=== PATIENT | female | born 1985 | race Caucasian/White ===

== ENCOUNTER 2017-09-08 18:16 | Emergency (ER) | payer OTHER ==
[~2017-09-08] VITALS: Ht 170.2 cm; Wt 90.7 kg
[~2017-09-08 18:16] MED LIST: AMOXICILLIN 50500 M1 PO; CLARITIN-D 12 H1 TA1 PO; CORTISPORIN OTI10 M2 OT; FLEXERIL PO; IBUPROFEN 800800 MG PO; LIORESAL 10 MG10 MG PO; NOHOMEMEDICATIONS; TRAMADOL 50 MG50 MG PO; VICODIN 5-5001 EACH PO
[2017-09-08] MEDS ORDERED: POLYMYXIN B/TMP10 ML OPHTHALMIC (18:35)
[2017-09-08 18:41] VITALS: BP 154/80
== END 2017-09-08 18:42 | disposition home or self-care (01) ==
LOC: M.ERS 18:16
DX: H00.021 Hordeolum internum right upper eyelid (principal); H00.022 Hordeolum internum right lower eyelid; F31.9 Bipolar disorder, unspecified; Z98.890 Other specified postprocedural states; F17.210 Nicotine dependence, cigarettes, uncomplicated

== ENCOUNTER 2017-09-20 14:20 | Emergency (ER) | payer OTHER ==
[~2017-09-20] VITALS: Ht 167.6 cm; Wt 90.7 kg
[~2017-09-20 14:20] MED LIST changes: +POLYMYXIN B/TMP10 ML OPHTHALMIC
[2017-09-20 14:30] VITALS: BP 154/87
[2017-09-20] MEDS ORDERED: IBUPROFEN 800800 M1 PO (14:51)
[2017-09-20] MEDS ORDERED: MEDROLDOSEPACK PO (14:51)
== END 2017-09-20 15:00 | disposition home or self-care (01) ==
LOC: M.ERS 14:20
DX: M77.9 Enthesopathy, unspecified (principal); F31.9 Bipolar disorder, unspecified; Z98.890 Other specified postprocedural states; F17.210 Nicotine dependence, cigarettes, uncomplicated

== ENCOUNTER 2017-11-06 13:23 | Emergency (ER) | payer OTHER ==
[~2017-11-06] VITALS: Ht 170.2 cm; Wt 90.7 kg
[~2017-11-06 13:23] MED LIST changes: +IBUPROFEN 800800 M1 PO; +MEDROLDOSEPACK PO
[2017-11-06] MEDS ORDERED: DEPAKOTE 250MG250 M1 PO (13:35)
[2017-11-06] MEDS ORDERED: PROZAC10 MG PO (13:36)
[2017-11-06] MEDS ORDERED: IBUPROFEN 600600 M1 PO (13:36)
[2017-11-06 14:10] LABS: ABSOLUTE BASOPHILS 0.1 thou/uL (0.0-0.2); ABSOLUTE EOSINOPHILS 0.1 thou/uL (0.0-0.7); ABSOLUTE LYMPHOCYTES 2.7 thou/uL (0.8-5.3); ABSOLUTE MONOCYTES 0.8 thou/uL (0.0-1.2); ABSOLUTE NEUTROPHILS 9.3 thou/uL (1.6-8.1); BASOPHILS 0.4 %; HEMATOCRIT 41.6 % (37.0-47.0); HEMOGLOBIN 14.5 gm/dL (12.0-15.0); LYMPHOCYTES 20.5 %; MCH 33.1 pg (26.0-34.0); MCHC 34.8 g/dL (28.0-37.0); MCV 95.1 fL (80.0-100.0); MONOCYTES 6.1 %; NUCLEATED RBCS 0 /100WBC; PLATELET COUNT* 215 thou/uL (150-400); RBC 4.37 mil/uL (4.20-5.00); RDW-CV 12.6 % (10.5-14.5); WBC 12.9 thou/uL (4.0-11.0)
[2017-11-06 14:18] LABS: ANION GAP 6 mmol/L (7-16); BUN 11 mg/dL (7-18); CALCIUM 8.5 mg/dL (8.5-10.1); CHLORIDE 100 mmol/L (98-107); CO2 26 mmol/L (21-32); CREATININE 0.9 mg/dL (0.6-1.3); GLUCOSE 170 mg/dL (70-99); POTASSIUM 3.9 mmol/L (3.5-5.1); SODIUM 132 mmol/L (136-145)
[2017-11-06 14:26] LABS: ALBUMIN 3.2 g/dL (3.4-5.0); ALKALINE PHOSPHATASE 74 U/L (46-116); LIPASE 113 U/L (73-393); SGOT 16 U/L (15-37); SGPT 28 U/L (30-65); TOTAL BILIRUBIN 0.7 mg/dL (<0.1-1.0); TOTAL PROTEIN 7.6 g/dL (6.4-8.2); TROPONIN-I LEVEL <0.06 ng/mL (<0.06)
[2017-11-06] MEDS ORDERED: MEDROLDOSEPACK PO (15:00)
[2017-11-06 15:07] VITALS: BP 102/79
--- NOTE | 2017-11-06 17:32 | EKG ---
[place] [address] ELECTROCARDIOGRAM REPORT Name: KALEN MESSINA Room: [facility]#: [id number] Admission: 11/06/17 Attend Phys: Discharge: 11/06/17 Date of : 83 Report #: [id number] THIS REPORT FOR: //name// [facility] ED Test Date: 2017-11-06 Test Time: 13:36:10 Pat Name: KALEN MESSINA Department: Room: Gender: F Portfolio Director: : 1985 Requested By: Fausto Keys Order Number: [id number] MD: Denis Felix Measurements Intervals [place] Rate: 84 P: 57 MD: 121 QRS: 60 QRSD: 87 T: 45 QT: 349 QTc: 413 Interpretive Statements Sinus rhythm Probable left atrial enlargement No previous ECG available for comparison Electronically Signed On 11-06-2017 17:31:53 CDT by Denis Felix [email or web address] <ELECTRONICALLY SIGNED> By: Denis Felix MD, [facility] 11/06/17 1731 [id number] [id number] Denis Felix MD, FACC /EPI
== END 2017-11-06 15:08 | disposition home or self-care (01) ==
LOC: M.ERS 13:23
PROVIDERS: Nurse Practitioner Family
DX: R07.89 Other chest pain (principal); R09.1 Pleurisy; F17.200 Nicotine dependence, unspecified, uncomplicated; F31.9 Bipolar disorder, unspecified; Z98.890 Other specified postprocedural states

== ENCOUNTER 2018-06-02 20:19 | Emergency (ER) | payer OTHER ==
[~2018-06-02] VITALS: Ht 167.6 cm; Wt 108.9 kg
[~2018-06-02 20:19] MED LIST changes: +DEPAKOTE 250MG250 M1 PO; +IBUPROFEN 600600 M1 PO; +PROZAC10 MG PO
[2018-06-02 21:16] LABS: ABSOLUTE EOSINOPHILS 0.1 thou/uL (0.0-0.7); ABSOLUTE MONOCYTES 0.7 thou/uL (0.0-1.2); ABSOLUTE NEUTROPHILS 7.6 thou/uL (1.6-8.1); BASOPHILS 0.2 %; EOSINOPHILS 1.2 %; HEMATOCRIT 44.4 % (37.0-47.0); HEMOGLOBIN 15.4 gm/dL (12.0-15.0); LYMPHOCYTES 26.5 %; MCH 32.1 pg (26.0-34.0); MCHC 34.6 g/dL (28.0-37.0); MCV 92.7 fL (80.0-100.0); MPV 9.7 fl. (7.2-11.1); NUCLEATED RBCS 0 /100WBC; PLATELET COUNT* 229 thou/uL (150-400); POLYS 66.1 %; RBC 4.79 mil/uL (4.20-5.00); RDW-CV 12.5 % (10.5-14.5); URINE BILIRUBIN NEGATIVE (Negative); URINE BLOOD NEGATIVE (Negative); URINE CLARITY CLEAR; URINE COLOR STRAW; URINE GLUCOSE-RANDOM 3+ (Negative); URINE KETONES TRACE (Negative); URINE LEUKOCYTES-REFLEX NEGATIVE (Negative); URINE NITRITE-REFLEX NEGATIVE (Negative); URINE PROTEIN TRACE (Negative); URINE UROBILINOGEN 0.2 E.U./dl (0.2-1.0); WBC 11.5 thou/uL (4.0-11.0)
[2018-06-02 21:27] LABS: APTT 25.3 Seconds (25.0-31.3); PROTIME 9.9 Seconds (9.20-11.50)
[2018-06-02 21:28] LABS: ALBUMIN 3.5 g/dL (3.4-5.0); CALCIUM 9.5 mg/dL (8.5-10.1); TOTAL BILIRUBIN 0.4 mg/dL (<0.1-1.0); TOTAL PROTEIN 8.4 g/dL (6.4-8.2)
[2018-06-02] MEDS ORDERED: PERCOCET PO (21:32)
[2018-06-02] MEDS ORDERED: IBUPROFEN 800800 M1 PO (21:32)
[2018-06-02 22:47] VITALS: BP 143/59
== END 2018-06-02 22:49 | disposition home or self-care (01) ==
LOC: M.ERS 20:19
PROVIDERS: Nurse Practitioner Family
DX: S52.572A Other intraarticular fracture of lower end of left radius, initial encounter for closed fracture (principal); S52.692A Other fracture of lower end of left ulna, initial encounter for closed fracture; S09.8XXA Other specified injuries of head, initial encounter; M25.512 Pain in left shoulder; R03.0 Elevated blood-pressure reading, without diagnosis of hypertension; R73.9 Hyperglycemia, unspecified; F31.9 Bipolar disorder, unspecified; Z98.890 Other specified postprocedural states; V87.8XXA Person injured in other specified noncollision transport accidents involving motor vehicle (traffic), initial encounter; Y93.89 Activity, other specified; Y92.89 Other specified places as the place of occurrence of the external cause; Y99.8 Other external cause status

== ENCOUNTER 2019-04-11 00:31 | Emergency (ER) | payer OTHER ==
[~2019-04-11] VITALS: Ht 170.2 cm; Wt 101.2 kg
[~2019-04-11 00:31] MED LIST changes: +PERCOCET PO
[2019-04-11 00:50] LABS: URINE BILIRUBIN NEGATIVE (Negative); URINE BLOOD NEGATIVE (Negative); URINE CLARITY CLEAR; URINE COLOR YELLOW; URINE GLUCOSE-RANDOM 3+ (Negative); URINE KETONES NEGATIVE (Negative); URINE LEUKOCYTES-REFLEX NEGATIVE (Negative); URINE NITRITE-REFLEX NEGATIVE (Negative); URINE PROTEIN NEGATIVE (Negative); URINE SPECIFIC GRAVITY <= 1.005 (1.005-1.030); URINE UROBILINOGEN 0.2 E.U./dl (0.2-1.0)
[2019-04-11 00:59] LABS: AMP/METHAMP Negative (Negative); BARBITURATES Negative (Negative); BENZODIAZEPINES Negative (Negative); COCAINE Negative (Negative); METHADONE Negative (Negative); OPIATES Negative (Negative); PCP Negative (Negative); THC POSITIVE (Negative)
[2019-04-11 01:28] LABS: INFLUENZA A ANTIGEN Positive (Negative); INFLUENZA B ANTIGEN Negative (Negative)
[2019-04-11 01:45] VITALS: BP 142/58
[2019-04-11] MEDS ORDERED: PROMETH-CODEIN 65 ML PO (01:53)
[2019-04-11] MEDS ORDERED: TAMIFLU75 MG PO (01:53)
== END 2019-04-11 02:14 | disposition home or self-care (01) ==
LOC: M.ERS 00:31
PROVIDERS: Emergency Medicine
DX: J10.1 Influenza due to other identified influenza virus with other respiratory manifestations (principal); F31.9 Bipolar disorder, unspecified; F17.210 Nicotine dependence, cigarettes, uncomplicated; Z98.890 Other specified postprocedural states

== ENCOUNTER 2019-06-14 21:16 | Emergency (ER) | payer OTHER ==
[~2019-06-14] VITALS: Ht 170.2 cm; Wt 90.7 kg
[~2019-06-14 21:16] MED LIST changes: +PROMETH-CODEIN 65 ML PO; +TAMIFLU75 MG PO
[2019-06-14 22:03] LABS: URINE BILIRUBIN NEGATIVE (Negative); URINE BLOOD NEGATIVE (Negative); URINE CLARITY CLEAR; URINE COLOR YELLOW; URINE GLUCOSE-RANDOM 3+ (Negative); URINE KETONES NEGATIVE (Negative); URINE LEUKOCYTES-REFLEX NEGATIVE (Negative); URINE NITRITE-REFLEX NEGATIVE (Negative); URINE PROTEIN NEGATIVE (Negative); URINE SPECIFIC GRAVITY >= 1.030 (1.005-1.030); URINE UROBILINOGEN 0.2 E.U./dl (0.2-1.0)
[2019-06-14 22:06] LABS: ABSOLUTE BASOPHILS 0.1 thou/uL (0.0-0.2); ABSOLUTE EOSINOPHILS 0.2 thou/uL (0.0-0.7); ABSOLUTE LYMPHOCYTES 3.1 thou/uL (0.8-5.3); ABSOLUTE MONOCYTES 0.5 thou/uL (0.0-1.2); ABSOLUTE NEUTROPHILS 9.8 thou/uL (1.6-8.1); BASOPHILS 0.6 %; EOSINOPHILS 1.1 %; HEMOGLOBIN 15.9 gm/dL (12.0-15.0); MCH 33.4 pg (26.0-34.0); MCHC 35.4 g/dL (28.0-37.0); MCV 94.5 fL (80.0-100.0); MONOCYTES 3.5 %; MPV 9.3 fl. (7.2-11.1); NUCLEATED RBCS 0 /100WBC; PLATELET COUNT* 199 thou/uL (150-400); POLYS 71.8 %; RBC 4.77 mil/uL (4.20-5.00); RDW-CV 12.7 % (10.5-14.5); WBC 13.6 thou/uL (4.0-11.0)
[2019-06-14 22:14] LABS: AMP/METHAMP Negative (Negative); BARBITURATES Negative (Negative); BENZODIAZEPINES Negative (Negative); COCAINE Negative (Negative); METHADONE Negative (Negative); OPIATES Negative (Negative); PCP Negative (Negative); THC POSITIVE (Negative)
[2019-06-14 22:23] LABS: CALCIUM 8.6 mg/dL (8.5-10.1); CREATININE 0.9 mg/dL (0.6-1.3); POTASSIUM 3.6 mmol/L (3.5-5.1)
[2019-06-14 22:28] LABS: ALBUMIN 3.2 g/dL (3.4-5.0); TOTAL BILIRUBIN 0.5 mg/dL (<0.1-1.0); TOTAL PROTEIN 7.7 g/dL (6.4-8.2)
[2019-06-14 22:59] VITALS: BP 129/86
--- NOTE | 2019-06-15 14:46 | EKG ---
[place] [address] ELECTROCARDIOGRAM REPORT Name: KALEN MESSINA Room: [facility] ([place], [place])#: [id number] Admission: 06/14/19 Attend Phys: Discharge: 06/14/19 Date of : 83 Date of Service: 06/14/192199 Report #: [id number] THIS REPORT FOR: //name// [facility] ED Test Date: 2019-06-14 Test Time: 22:00:26 Pat Name: KALEN MESSINA Department: Room: Gender: F Television Engineer: BRAN : 1985 Requested By: Cassidy King Order Number: [id number] MD: Tristan Arana Measurements Intervals [place] Rate: 82 P: 43 NE: 130 QRS: 59 QRSD: 91 T: 45 QT: 356 QTc: 416 Interpretive Statements Sinus rhythm Compared to ECG 11/06/2017 13:36:10 No significant changes Electronically Signed On 06-15-2019 14:44:24 CDT by Tristan Arana [email or web address] <ELECTRONICALLY SIGNED> By: Tristan Arana MD, [facility] 06/15/19 [phone] 99 Tristan Arana MD, [facility] /EPI
== END 2019-06-14 22:59 | disposition home or self-care (01) ==
LOC: M.ERS 21:16
PROVIDERS: Personal Emergency Response Attendant
DX: E11.65 Type 2 diabetes mellitus with hyperglycemia (principal); F31.9 Bipolar disorder, unspecified; F17.210 Nicotine dependence, cigarettes, uncomplicated; Z98.890 Other specified postprocedural states

== ENCOUNTER 2019-07-11 01:22 | Emergency (ER) | payer OTHER ==
[~2019-07-11] VITALS: Ht 170.2 cm; Wt 90.7 kg
[2019-07-11 01:59] LABS: ABSOLUTE BASOPHILS 0.1 thou/uL (0.0-0.2); ABSOLUTE EOSINOPHILS 0.2 thou/uL (0.0-0.7); ABSOLUTE MONOCYTES 0.6 thou/uL (0.0-1.2); ABSOLUTE NEUTROPHILS 8.2 thou/uL (1.6-8.1); BASOPHILS 0.6 %; EOSINOPHILS 1.4 %; HEMATOCRIT 46.2 % (37.0-47.0); HEMOGLOBIN 16.3 gm/dL (12.0-15.0); LYMPHOCYTES 30.8 %; MCH 33.6 pg (26.0-34.0); MCHC 35.3 g/dL (28.0-37.0); MCV 94.9 fL (80.0-100.0); MONOCYTES 4.4 %; MPV 9.6 fl. (7.2-11.1); NUCLEATED RBCS 0 /100WBC; PLATELET COUNT* 217 thou/uL (150-400); POLYS 62.8 %; RBC 4.86 mil/uL (4.20-5.00); RDW-CV 12.7 % (10.5-14.5)
[2019-07-11 02:10] LABS: CALCIUM 8.7 mg/dL (8.5-10.1); CREATININE 0.9 mg/dL (0.6-1.3); POTASSIUM 3.6 mmol/L (3.5-5.1)
[2019-07-11 02:14] LABS: ALBUMIN 3.3 g/dL (3.4-5.0); TOTAL BILIRUBIN 0.4 mg/dL (<0.1-1.0); TOTAL PROTEIN 8.1 g/dL (6.4-8.2)
[2019-07-11] MEDS ORDERED: IBUPROFEN 800800 M1 PO (02:27)
[2019-07-11] MEDS ORDERED: FLEXERIL PO (02:27)
[2019-07-11] MEDS ORDERED: NORCO 5-325 TA1 EAC1 PO (02:27)
[2019-07-11 02:35] VITALS: BP 145/80
--- NOTE | 2019-07-11 16:15 | EKG ---
[place] [address] ELECTROCARDIOGRAM REPORT Name: KALEN MESSINA Room: [facility] ([place], [place])#: [id number] Admission: 07/11/19 Attend Phys: Discharge: 07/11/19 Date of : 83 Date of Service: 07/11/19 0129 Report #: [id number] THIS REPORT FOR: //name// [facility] ED Test Date: 2019-07-11 Test Time: 01:29:45 Pat Name: KALEN MESSINA Department: Room: Gender: F Oil Operator: : 1985 Requested By: Alec Monsalve Order Number: [id number] MD: Juan Antonio Barrios Measurements Intervals [place] Rate: 86 P: 44 FL: 129 QRS: 63 QRSD: 91 T: 52 QT: 344 QTc: 412 Interpretive Statements Sinus rhythm Compared to ECG 06/14/2019 22:00:26 No significant changes Electronically Signed On 07-11-2019 16:13:46 CDT by Juan Antonio Barrios [email or web address] <ELECTRONICALLY SIGNED> By: Juan Antonio Barrios MD, [facility] 07/11/19 1613 0129 0129 Juan Antonio Barrios MD, [facility] /EPI
== END 2019-07-11 02:35 | disposition home or self-care (01) ==
LOC: M.ERS 01:22
PROVIDERS: Emergency Medicine Emergency Medical Services
DX: M94.0 Chondrocostal junction syndrome [Tietze] (principal); R07.89 Other chest pain; F17.210 Nicotine dependence, cigarettes, uncomplicated; Z98.890 Other specified postprocedural states

== ENCOUNTER 2019-09-06 02:27 | Emergency (ER) | payer OTHER ==
[~2019-09-06] VITALS: Ht 170.2 cm; Wt 100.2 kg
[~2019-09-06 02:27] MED LIST changes: +NORCO 5-325 TA1 EAC1 PO
[2019-09-06 02:32] VITALS: BP 148/86
[2019-09-06] MEDS ORDERED: NORCO 5-325 TA1 EAC2 PO (02:48)
[2019-09-06] MEDS ORDERED: FLEXERIL PO (02:48)
== END 2019-09-06 02:54 | disposition home or self-care (01) ==
LOC: M.ERS 02:27
DX: M54.6 Pain in thoracic spine (principal); F17.210 Nicotine dependence, cigarettes, uncomplicated; Z98.890 Other specified postprocedural states; Z98.51 Tubal ligation status

== ENCOUNTER 2019-10-10 23:08 | Emergency (ER) | payer OTHER ==
[~2019-10-10] VITALS: Ht 170.2 cm; Wt 99.8 kg
[~2019-10-10 23:08] MED LIST changes: +NORCO 5-325 TA1 EAC2 PO
[2019-10-11] MEDS ORDERED: PROMETHAZINE V120 ML PO (00:14)
[2019-10-11] MEDS ORDERED: Magic Mouthwash SWISH&SPIT (00:14)
[2019-10-11] MEDS ORDERED: NAPROSYN500 MG PO (00:15)
[2019-10-11 00:26] VITALS: BP 136/70
== END 2019-10-11 00:26 | disposition home or self-care (01) ==
LOC: M.ERS 23:08
DX: J04.0 Acute laryngitis (principal); M94.0 Chondrocostal junction syndrome [Tietze]; F17.210 Nicotine dependence, cigarettes, uncomplicated; Z98.890 Other specified postprocedural states; Z98.51 Tubal ligation status

== ENCOUNTER 2019-11-19 19:17 | Emergency (ER) | payer OTHER ==
[~2019-11-19] VITALS: Ht 170.2 cm; Wt 99.8 kg
[~2019-11-19 19:17] MED LIST changes: +Magic Mouthwash SWISH&SPIT; +NAPROSYN500 MG PO; +PROMETHAZINE V120 ML PO
[2019-11-19] MEDS ORDERED: PROAIR HFA8.5 GM INH (20:47)
[2019-11-19] MEDS ORDERED: MEDROLDOSEPACK PO (20:47)
[2019-11-19 20:50] VITALS: BP 121/62
== END 2019-11-19 20:50 | disposition home or self-care (01) ==
LOC: M.ERS 19:17
DX: J20.9 Acute bronchitis, unspecified (principal); Z20.828 Contact with and (suspected) exposure to other viral communicable diseases; F31.9 Bipolar disorder, unspecified; F17.210 Nicotine dependence, cigarettes, uncomplicated; Z98.890 Other specified postprocedural states; Z98.51 Tubal ligation status

== ENCOUNTER 2020-01-22 18:39 | Emergency (ER) | payer OTHER ==
[~2020-01-22] VITALS: Ht 170.2 cm; Wt 97.5 kg
[~2020-01-22 18:39] MED LIST changes: +PROAIR HFA8.5 GM INH
[2020-01-22 19:23] LABS: URINE BILIRUBIN NEGATIVE (Negative); URINE BLOOD NEGATIVE (Negative); URINE CLARITY CLEAR; URINE COLOR YELLOW; URINE GLUCOSE-RANDOM NEGATIVE (Negative); URINE KETONES NEGATIVE (Negative); URINE LEUKOCYTES-REFLEX NEGATIVE (Negative); URINE NITRITE-REFLEX NEGATIVE (Negative); URINE PROTEIN TRACE (Negative); URINE UROBILINOGEN 0.2 E.U./dl (0.2-1.0)
[2020-01-22 19:28] LABS: ABSOLUTE BASOPHILS 0.1 thou/uL (0.0-0.2); ABSOLUTE EOSINOPHILS 0.1 thou/uL (0.0-0.7); ABSOLUTE LYMPHOCYTES 3.3 thou/uL (0.8-5.3); ABSOLUTE MONOCYTES 0.7 thou/uL (0.0-1.2); ABSOLUTE NEUTROPHILS 8.8 thou/uL (1.6-8.1); BASOPHILS 0.4 %; HEMOGLOBIN 16.3 gm/dL (12.0-15.0); LYMPHOCYTES 25.7 %; MCH 32.7 pg (26.0-34.0); MCHC 34.7 g/dL (28.0-37.0); MONOCYTES 5.3 %; MPV 8.7 fl. (7.2-11.1); NUCLEATED RBCS 0 /100WBC; PLATELET COUNT* 229 thou/uL (150-400); POLYS 67.6 %; RDW-CV 12.6 % (10.5-14.5)
[2020-01-22 19:32] LABS: AMP/METHAMP Negative (Negative); BARBITURATES Negative (Negative); BENZODIAZEPINES POSITIVE (Negative); COCAINE Negative (Negative); METHADONE Negative (Negative); OPIATES Negative (Negative); PCP Negative (Negative); THC POSITIVE (Negative)
[2020-01-22 19:35] LABS: CALCIUM 8.8 mg/dL (8.5-10.1); CREATININE 0.8 mg/dL (0.6-1.3); POTASSIUM 3.5 mmol/L (3.5-5.1)
[2020-01-22 19:40] LABS: ALBUMIN 3.4 g/dL (3.4-5.0); TOTAL BILIRUBIN 0.8 mg/dL (<0.1-1.0); TOTAL PROTEIN 7.9 g/dL (6.4-8.2)
[2020-01-22 20:15] LABS: ACETAMINOPHEN < 2 ug/mL (10-30); ALCOHOL < 10 mg/dL (<10)
[2020-01-23 17:10] VITALS: BP 155/99
== END 2020-01-23 17:10 ==
LOC: M.ERS 18:39
PROVIDERS: Emergency Medicine
DX: R45.851 Suicidal ideations (principal); Z20.828 Contact with and (suspected) exposure to other viral communicable diseases; F17.210 Nicotine dependence, cigarettes, uncomplicated; Z98.890 Other specified postprocedural states; Z98.51 Tubal ligation status; Z79.899 Other long term (current) drug therapy

== ENCOUNTER 2020-04-04 11:21 | Emergency (ER) | payer OTHER ==
[~2020-04-04] VITALS: Ht 170.2 cm; Wt 90.7 kg
[2020-04-04] MEDS ORDERED: PROZAC10 M1 PO (11:43)
[2020-04-04] MEDS ORDERED: DESYREL150 MG PO (11:43)
[2020-04-04] MEDS ORDERED: ABILIFY10 MG PO (11:43)
[2020-04-04] MEDS ORDERED: PROMETHAZI6.25 MG/5 PO (12:12)
[2020-04-04] MEDS ORDERED: PROAIR HFA8.5 GM INH (12:12)
[2020-04-04] MEDS ORDERED: TESSALON PERLE100 MG PO (12:12)
[2020-04-04] MEDS ORDERED: MEDROLDOSEPACK PO (12:12)
[2020-04-04 12:20] VITALS: BP 122/84
== END 2020-04-04 12:20 | disposition home or self-care (01) ==
LOC: M.ERS 11:21
DX: J06.9 Acute upper respiratory infection, unspecified (principal); Z20.822 Contact with and (suspected) exposure to COVID-19; F17.210 Nicotine dependence, cigarettes, uncomplicated; Z98.890 Other specified postprocedural states; Z98.51 Tubal ligation status

== ENCOUNTER 2020-05-08 22:36 | Emergency (ER) | payer OTHER ==
[~2020-05-08] VITALS: Ht 170.2 cm; Wt 90.7 kg
[~2020-05-08 22:36] MED LIST changes: +ABILIFY10 MG PO; +DESYREL150 MG PO; +PROMETHAZI6.25 MG/5 PO; +PROZAC10 M1 PO; +TESSALON PERLE100 MG PO
[2020-05-08] MEDS ORDERED: LAMOTRIGINE250 MG PO (22:54)
[2020-05-09] MEDS ORDERED: HYDROCODON-ACE1 EAC8 PO
[2020-05-09 00:15] VITALS: BP 146/93
== END 2020-05-09 00:15 | disposition home or self-care (01) ==
LOC: M.ERS 22:36
DX: S52.122A Displaced fracture of head of left radius, initial encounter for closed fracture (principal); F17.210 Nicotine dependence, cigarettes, uncomplicated; Z98.51 Tubal ligation status; Z98.890 Other specified postprocedural states; W01.0XXA Fall on same level from slipping, tripping and stumbling without subsequent striking against object, initial encounter; Y93.89 Activity, other specified; Y92.89 Other specified places as the place of occurrence of the external cause; Y99.8 Other external cause status

== ENCOUNTER 2020-07-24 12:18 | Emergency (ER) | payer OTHER ==
[~2020-07-24] VITALS: Ht 170.2 cm; Wt 99.8 kg
[~2020-07-24 12:18] MED LIST changes: +HYDROCODON-ACE1 EAC8 PO; +LAMOTRIGINE250 MG PO
[2020-07-24] MEDS ORDERED: DOXYCYCLINE 10100 MG PO (13:41)
[2020-07-24] MEDS ORDERED: APAP W/CODEINE1 TA2 PO (13:42)
[2020-07-24 14:06] VITALS: BP 131/85
== END 2020-07-24 14:08 | disposition home or self-care (01) ==
LOC: M.ERS 12:18
DX: L02.214 Cutaneous abscess of groin (principal); F17.210 Nicotine dependence, cigarettes, uncomplicated; Z98.890 Other specified postprocedural states; Z98.51 Tubal ligation status